=== PATIENT | male | born 1935 | race Caucasian/White ===

== ENCOUNTER 2017-08-18 09:11 | Emergency (ER) | payer OTHER, MEDICAID ==
[~2017-08-18] VITALS: Ht 167.6 cm; Wt 72.6 kg
[2017-08-18 09:11] VITALS: BP_SYST 152
[2017-08-18] MEDS ORDERED: GASTROGRAFIN 120 ML ONE (09:39)
[2017-08-18 10:01] VITALS: BP_SYST 152
== END 2017-08-18 10:01 | disposition home or self-care (01) ==
LOC: SED 09:11
DX: Z43.1 Encounter for attention to gastrostomy (principal)
CPT/HCPCS: 43760; 74240; 99284; Q9963